=== PATIENT | male | born 1975 | race Caucasian/White ===

== ENCOUNTER 2018-08-03 09:19 | Outpatient (CLI) | payer OTHER ==
[~2018-08-03 09:19] MED LIST: ANAPROX275 MG; CAPTOPRIL5 GM MC; DECADRON P4 MG/ML-1M IH; GLUCOPHAGE XR500 MG; GLUCOTROL10 MG PO; NEURONTIN300 MG PO; SEPTRA 80/400 T1 TAB; TORADOL60 MG IM; VOLTAREM 50 MG PO
== END 2018-08-03 09:23 | disposition home or self-care (01) ==
LOC: LAB 09:19
DX: M77.30 Calcaneal spur, unspecified foot (principal); M25.521 Pain in right elbow; E78.49 Other hyperlipidemia; Z00.00 Encounter for general adult medical examination without abnormal findings; R42 Dizziness and giddiness; R10.2 Pelvic and perineal pain

== ENCOUNTER 2020-11-12 07:46 | Outpatient (CLI) | payer OTHER | END 2020-11-12 15:00 | disposition home or self-care (01) | LOC: LAB 07:46 | PROVIDERS: ATTEND Internal Medicine Cardiovascular Disease | DX: E03.8 Other specified hypothyroidism (principal); I10 Essential (primary) hypertension; E11.9 Type 2 diabetes mellitus without complications; E78.2 Mixed hyperlipidemia; E55.9 Vitamin D deficiency, unspecified ==

== ENCOUNTER 2020-11-12 08:19 | Outpatient (CLI) | payer OTHER | END 2020-11-12 08:20 | disposition home or self-care (01) | LOC: NUCLEAR 08:19 | DX: I10 Essential (primary) hypertension (principal) ==

== ENCOUNTER 2020-11-20 16:03 | Emergency (ER) | payer OTHER ==
[~2020-11-20] VITALS: Ht 175.3 cm; Wt 88.5 kg
== END 2020-11-20 23:00 | disposition designated cancer center or children's hospital (05) ==
LOC: ER 16:03
DX: R07.89 Other chest pain (principal); Z11.52 Encounter for screening for COVID-19

== ENCOUNTER 2021-01-01 08:39 | Outpatient (CLI) | payer OTHER | END 2021-01-01 08:42 | disposition home or self-care (01) | LOC: LAB 08:39 | PROVIDERS: ATTEND Internal Medicine Cardiovascular Disease | DX: D64.89 Other specified anemias (principal); N39.0 Urinary tract infection, site not specified; R10.84 Generalized abdominal pain; E03.8 Other specified hypothyroidism; E55.9 Vitamin D deficiency, unspecified; E11.9 Type 2 diabetes mellitus without complications; I10 Essential (primary) hypertension; I28.8 Other diseases of pulmonary vessels ==

== ENCOUNTER 2021-05-20 08:00 | Outpatient (CLI) | payer OTHER ==
[~2021-05-20 08:00] MED LIST changes: +METHOCARBAMOL500 MG PO; +VOLTAREN ARTHRI20 GM TOP
== END 2021-05-20 15:00 | disposition home or self-care (01) ==
LOC: LAB 08:00
PROVIDERS: ATTEND Internal Medicine Cardiovascular Disease
DX: D64.89 Other specified anemias (principal); N39.0 Urinary tract infection, site not specified; R10.84 Generalized abdominal pain; E03.8 Other specified hypothyroidism; E78.49 Other hyperlipidemia; E55.9 Vitamin D deficiency, unspecified; R73.09 Other abnormal glucose; N40.0 Benign prostatic hyperplasia without lower urinary tract symptoms; Z12.5 Encounter for screening for malignant neoplasm of prostate; I10 Essential (primary) hypertension; Z13.6 Encounter for screening for cardiovascular disorders; I25.10 Atherosclerotic heart disease of native coronary artery without angina pectoris

== ENCOUNTER → 2021-09-22 06:59 | Outpatient (CLI) | payer OTHER | END | disposition home or self-care (01) | LOC: LAB 06:59 | PROVIDERS: ATTEND Internal Medicine Cardiovascular Disease | DX: E11.9 Type 2 diabetes mellitus without complications (principal); I10 Essential (primary) hypertension; E03.9 Hypothyroidism, unspecified; E78.2 Mixed hyperlipidemia ==

== ENCOUNTER 2021-11-18 06:49 | Outpatient (CLI) | payer OTHER | END 2021-11-18 06:55 | disposition home or self-care (01) | LOC: LAB 06:49 | PROVIDERS: ATTEND Internal Medicine Cardiovascular Disease | DX: D64.9 Anemia, unspecified (principal); R10.9 Unspecified abdominal pain; E78.5 Hyperlipidemia, unspecified; E55.9 Vitamin D deficiency, unspecified; E11.9 Type 2 diabetes mellitus without complications ==

== ENCOUNTER 2021-12-14 06:47 | Outpatient (CLI) | payer OTHER | END 2021-12-14 06:52 | disposition home or self-care (01) | LOC: LAB 06:47 | PROVIDERS: ATTEND Internal Medicine Cardiovascular Disease | DX: J11.1 Influenza due to unidentified influenza virus with other respiratory manifestations (principal); A49.3 Mycoplasma infection, unspecified site; Z20.822 Contact with and (suspected) exposure to COVID-19 ==

== ENCOUNTER 2022-02-06 06:15 | Outpatient (CLI) | payer OTHER | END 2022-02-06 06:16 | disposition home or self-care (01) | LOC: LAB 06:15 | PROVIDERS: ATTEND Internal Medicine Cardiovascular Disease | DX: N30.00 Acute cystitis without hematuria (principal); R36.1 Hematospermia; R97.21 Rising PSA following treatment for malignant neoplasm of prostate; I10 Essential (primary) hypertension; E11.9 Type 2 diabetes mellitus without complications; E03.9 Hypothyroidism, unspecified; E78.2 Mixed hyperlipidemia ==

== ENCOUNTER 2022-04-15 07:41 | Outpatient (CLI) | payer OTHER | END 2022-04-15 07:45 | disposition home or self-care (01) | LOC: LAB 07:41 | PROVIDERS: ATTEND Internal Medicine Cardiovascular Disease | DX: D64.9 Anemia, unspecified (principal); R10.9 Unspecified abdominal pain; E78.5 Hyperlipidemia, unspecified; E55.9 Vitamin D deficiency, unspecified; E11.9 Type 2 diabetes mellitus without complications ==

== ENCOUNTER → 2022-06-30 08:22 | Outpatient (CLI) | payer OTHER | END | disposition home or self-care (01) | LOC: LAB 08:22 | PROVIDERS: ATTEND Internal Medicine Cardiovascular Disease | DX: D64.9 Anemia, unspecified (principal); R10.9 Unspecified abdominal pain; E78.5 Hyperlipidemia, unspecified; E55.9 Vitamin D deficiency, unspecified; R80.9 Proteinuria, unspecified; E11.9 Type 2 diabetes mellitus without complications ==

== ENCOUNTER 2022-12-09 12:45 | Outpatient (CLI) | payer OTHER | END 2022-12-09 12:47 | disposition home or self-care (01) | LOC: LAB 12:45 | PROVIDERS: ATTEND Internal Medicine Cardiovascular Disease | DX: I10 Essential (primary) hypertension (principal); E11.9 Type 2 diabetes mellitus without complications; E78.2 Mixed hyperlipidemia; E03.9 Hypothyroidism, unspecified ==

== ENCOUNTER 2022-12-22 09:38 | Outpatient (CLI) | payer OTHER | END 2022-12-22 09:43 | disposition home or self-care (01) | LOC: RAD 09:38 | PROVIDERS: ATTEND Internal Medicine Cardiovascular Disease | DX: M12.9 Arthropathy, unspecified (principal) ==

== ENCOUNTER → 2023-03-16 | Outpatient (CLI) | payer OTHER | END | disposition home or self-care (01) | LOC: MRI 08:37 | PROVIDERS: ATTEND Internal Medicine Cardiovascular Disease | DX: M46.47 Discitis, unspecified, lumbosacral region (principal) | CPT/HCPCS: 72148 ==

== ENCOUNTER 2023-05-12 10:32 | Outpatient (CLI) | payer OTHER ==
[2023-05-12 11:58] LABS: HEMATOCRIT 45.5 % (36.0-45.00); HEMOGLOBIN 15.6 g/dL (12.0-15.00); MEAN CELL VOLUME 92.5 fL (80.00-100.00); MEAN CORPUSCULAR HEMOGLOBIN 31.7 pg (27.00-32.0); MEAN CORPUSCULAR HGB CONC 34.3 g/dl (32.0-36.0); PLATELET COUNT 175 K/uL (150-450); RED BLOOD COUNT 4.92 M/uL (4.00-6.00); RED CELL DISTRIBUTION WIDTH 13.1 % (11.5-14.5)
[2023-05-12 12:38] LABS: ALBUMIN 4.2 gm/dL (3.4-5.0); BILIRUBIN TOTAL 1.19 mg/dL (0.3-1.2); CALCIUM 9.8 mg/dL (8.5-10.1); CHOL HDL RATIO 2.3 (0-5.0); CREATININE SERUM 1.01 mg/dL (0.55-1.02); GFR 58.75; GLOBULINA 3.4 G/DL (2.4-3.5); POTASSIUM 4.88 mEq/L (3.5-5.1); TOTAL PROTEIN 7.6 gm/dL (6.4-8.2); TSH 0.969 uIU/mL (0.358-3.74)
== END 2023-05-12 10:33 | disposition home or self-care (01) ==
LOC: LAB 10:32
PROVIDERS: ATTEND Internal Medicine Cardiovascular Disease
DX: I10 Essential (primary) hypertension (principal); E11.9 Type 2 diabetes mellitus without complications; E03.9 Hypothyroidism, unspecified; E78.2 Mixed hyperlipidemia; E55.9 Vitamin D deficiency, unspecified

== ENCOUNTER 2023-05-30 13:59 | Outpatient (CLI) | payer OTHER | END 2023-05-30 14:13 | disposition home or self-care (01) | LOC: RAD 13:59 | DX: M51.16 Intervertebral disc disorders with radiculopathy, lumbar region (principal) ==

== ENCOUNTER 2023-08-03 07:26 | Outpatient (CLI) | payer OTHER ==
[2023-08-03 08:48] LABS: PHOSPHOKINASE CREATININE 462 U/L (39-308); URIC ACID 4.1 mg/dL (3.5-8.5)
[2023-08-03 09:03] LABS: C-REACTIVE PROTEIN < 0.29 MG/DL (0.00-0.29)
== END 2023-08-03 11:37 | disposition home or self-care (01) ==
LOC: LAB 07:26 → EDSEX 07:26 → LAB 11:27
PROVIDERS: ATTEND Internal Medicine Cardiovascular Disease
DX: M12.9 Arthropathy, unspecified (principal); M10.9 Gout, unspecified

== ENCOUNTER 2023-08-03 08:19 | Outpatient (CLI) | payer OTHER | END 2023-08-03 08:26 | disposition home or self-care (01) | LOC: TOM 08:19 | PROVIDERS: ATTEND Neurological Surgery | DX: M48.06 Spinal stenosis, lumbar region (principal); M51.16 Intervertebral disc disorders with radiculopathy, lumbar region ==

== ENCOUNTER 2024-03-01 08:00 | Outpatient (CLI) | payer OTHER ==
[2024-03-01 08:02] LABS: URINE APPEARANCE Clear; URINE BILIRRUBIN Negative (NEGATIVE); URINE BLOOD Negative; URINE COLOR Yellow; URINE GLUCOSE Negative (NEGATIVE); URINE KETONE Negative (NEGATIVE); URINE LEUKOCYTE Negative; URINE NITRATE Negative; URINE PROTEIN Negative (NEGATIVE)
[2024-03-01 08:09] LABS: URINE RBC 3.8 uL (0.0-20.8)
[2024-03-01 08:18] LABS: URINE WBC 0.1 uL (0.0-23.2)
[2024-03-01 08:19] LABS: URINE BACTERIA 1.2 uL (0.0-1933); URINE EPITHELIAL CELLS 0.7 uL (0.0-38.8)
[2024-03-01 08:26] LABS: HEMATOCRIT 42.5 % (39.0-48.0); HEMOGLOBIN 14.7 g/dL (13-16.00); MEAN CELL VOLUME 92.4 fL (80.0-100.00); MEAN CORPUSCULAR HGB CONC 34.6 g/dl (32.0-36.0); PLATELET COUNT 171 K/uL (150-450); RED CELL DISTRIBUTION WIDTH 12.8 % (11.5-14.5)
[2024-03-01 09:40] LABS: BILIRUBIN TOTAL 0.69 mg/dL (0.3-1.2); CALCIUM 8.8 mg/dL (8.5-10.1); CHOL HDL RATIO 1.6 (0-5.0); CREATININE SERUM 0.88 mg/dL (0.70-1.30); GFR 92.82; GLOBULINA 3.4 G/DL (2.4-3.5); POTASSIUM 4.05 mEq/L (3.5-5.1); T4 TOTAL 6.48 UG/DL (4.5-12.1); TOTAL PROTEIN 7.4 gm/dL (6.4-8.2); TSH 1.28 uIU/mL (0.358-3.74)
== END 2024-03-01 23:00 | disposition home or self-care (01) ==
LOC: LAB 08:00
PROVIDERS: ATTEND Internal Medicine Cardiovascular Disease
DX: E03.9 Hypothyroidism, unspecified (principal); I10 Essential (primary) hypertension; E11.9 Type 2 diabetes mellitus without complications; E78.2 Mixed hyperlipidemia; D64.9 Anemia, unspecified; N39.0 Urinary tract infection, site not specified; R10.9 Unspecified abdominal pain; E78.5 Hyperlipidemia, unspecified

== ENCOUNTER 2024-05-26 09:58 | Outpatient (CLI) | payer OTHER | END 2024-05-26 10:00 | disposition home or self-care (01) | LOC: NUCLEAR 09:58 | PROVIDERS: ATTEND Internal Medicine Cardiovascular Disease | DX: R06.09 Other forms of dyspnea (principal) ==

== ENCOUNTER 2024-08-09 07:41 | Outpatient (CLI) | payer OTHER ==
[2024-08-09 08:34] LABS: URINE APPEARANCE Clear; URINE BILIRRUBIN Negative (NEGATIVE); URINE BLOOD Negative; URINE COLOR Yellow; URINE GLUCOSE Negative (NEGATIVE); URINE KETONE Negative (NEGATIVE); URINE LEUKOCYTE Negative; URINE NITRATE Negative; URINE PROTEIN Negative (NEGATIVE); URINE UROBILINOGEN 0.2 E.U./dl
[2024-08-09 08:35] LABS: HEMATOCRIT 40.3 % (39.0-48.0); HEMOGLOBIN 13.7 g/dL (13-16.00); MEAN CELL VOLUME 93.9 fL (80.0-100.00); MEAN CORPUSCULAR HEMOGLOBIN 31.8 pg (27.00-32.0); MEAN CORPUSCULAR HGB CONC 33.9 g/dl (32.0-36.0); PLATELET COUNT 159 K/uL (150-450); RED BLOOD COUNT 4.29 M/uL (4.00-6.00); RED CELL DISTRIBUTION WIDTH 12.9 % (11.5-14.5)
[2024-08-09 08:48] LABS: URINE BACTERIA 3.6 uL (0.0-1933); URINE EPITHELIAL CELLS 0.1 uL (0.0-38.8); URINE RBC 1.6 uL (0.0-20.8); URINE WBC 0.3 uL (0.0-23.2)
[2024-08-09 09:21] LABS: ALBUMIN 4.2 gm/dL (3.4-5.0); BILIRUBIN TOTAL 1.22 mg/dL (0.3-1.2); CALCIUM 9.1 mg/dL (8.5-10.1); CHOL HDL RATIO 1.7 (0-5.0); CREATININE SERUM 0.99 mg/dL (0.70-1.30); GFR 80.68; GLOBULINA 3.2 G/DL (2.4-3.5); POTASSIUM 4.21 mEq/L (3.5-5.1); PROSTATIC SPECIFIC ANTIGEN 0.372 NG/ML (0.010-4.00); T4 TOTAL 8.74 UG/DL (4.5-12.1); TOTAL PROTEIN 7.4 gm/dL (6.4-8.2); TSH 1.41 uIU/mL (0.358-3.74)
[2024-08-11 11:22] LABS: T3 TOTAL 1.16 ng/ml (0.846-2.02); VITAMIN D3 25 HYDROXY 71.48 ng/ml (30-120)
== END 2024-08-09 23:00 | disposition home or self-care (01) ==
LOC: LAB 07:41
PROVIDERS: ATTEND Internal Medicine Cardiovascular Disease
DX: I10 Essential (primary) hypertension (principal); E11.9 Type 2 diabetes mellitus without complications; E03.9 Hypothyroidism, unspecified; E78.2 Mixed hyperlipidemia; D64.0 Hereditary sideroblastic anemia; Z12.11 Encounter for screening for malignant neoplasm of colon; N40.0 Benign prostatic hyperplasia without lower urinary tract symptoms; E55.9 Vitamin D deficiency, unspecified; M81.0 Age-related osteoporosis without current pathological fracture

== ENCOUNTER 2024-11-11 12:24 | Outpatient (CLI) | payer OTHER ==
[2024-11-11 13:11] LABS: COVID-19 AG POSITIVE (NEGATIVE)
[2024-11-11 13:11] LABS: BASO % 0.1 % (0.1-1.2); EOS # 0.00 (0.04-0.54); EOS % 0.0 % (0.7-7.0); LYMPH # 0.51 (1.18-3.74); LYMPH % 4.8 % (19.3-53.1); MEAN PLATELET VOLUME 10.10 fl (9.4-12.4); MONO # 0.40 (0.24-0.82); MONO % 3.7 % (4.7-12.5); NEUT # 9.70 (1.56-6.13); NEUT % 90.9 % (34.0-71.1); RED CELL DISTRIBUTION WIDTH 12.9 % (11.6-14.4)
[2024-11-11 13:13] LABS: URINE APPEARANCE Clear; URINE BILIRRUBIN Negative (NEGATIVE); URINE BLOOD Negative; URINE COLOR Dark Yellow; URINE GLUCOSE Negative (NEGATIVE); URINE KETONE Trace (NEGATIVE); URINE LEUKOCYTE Negative; URINE NITRATE Negative; URINE PROTEIN 30 (NEGATIVE); URINE UROBILINOGEN 1.0 E.U./dl
[2024-11-11 13:16] LABS: URINE EPITHELIAL CELLS 6.3 uL (0.0-38.8); URINE RBC 16.8 uL (0.0-20.8); URINE WBC 2.6 uL (0.0-23.2)
[2024-11-11 13:17] LABS: URINE BACTERIA 2.3 uL (0.0-1933); URINE CAST 0.14 uL (0.0-1.40)
[2024-11-11 14:03] LABS: ALT/SGPT 35.0 U/L (12-78); AST/SGOT 22.0 U/L (15-37); BILIRUBIN TOTAL 1.64 mg/dL (0.3-1.2); BUN CREA RATIO 15.0 (7.0-25.0); CREATININE SERUM 1.08 mg/dL (0.70-1.30); GFR 72.97; GLOBULINA 3.4 G/DL (2.4-3.5); GLUCOSE FASTING 103.0 mg/dL (65-100); OSMOLALITY SERUM 279.0 MOSM/KG (275-295)
[2024-11-13 09:08] LABS: HEPATITIS A ANTIBODY IGG Negative (Negative); HEPATITIS B SURFACE ANTIBODY Non Reactive (.); HEPATITIS C VIRUS ANTIBODY Non Reactive (Non Reactive)
== END 2024-11-11 13:00 | disposition home or self-care (01) ==
LOC: LAB 12:24
DX: R05.3 Chronic cough (principal); A64 Unspecified sexually transmitted disease; B19.9 Unspecified viral hepatitis without hepatic coma; N39.0 Urinary tract infection, site not specified; Z20.822 Contact with and (suspected) exposure to COVID-19; J11.00 Influenza due to unidentified influenza virus with unspecified type of pneumonia; R05.9 Cough, unspecified; R50.9 Fever, unspecified